=== PATIENT | male | born 2005 | race Two or more races ===

== ENCOUNTER 2025-03-27 07:43 | Inpatient (IN) | payer MEDICAID, OTHER ==
[~2025-03-27] VITALS: Ht 175.3 cm; Wt 105.4 kg
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
[2025-03-27] MEDS ORDERED: IBUP-1678 PO (08:19)
--- NOTE | 2025-03-27 08:56 | DVH ---
EXAM: US TESTICULAR ULTRASOUND HISTORY: trauma COMPARISON: None TECHNIQUE: Scrotal ultrasound was performed. FINDINGS: The right testicle measures 3.3 x 1.7 x 2.9 cm. The left testicle measures 2.6 x 2.5 x 3.2 cm. No t esticular masses or cystic lesions are identified bilaterally. There is normal color Doppler blood fl ow in the right testicle. There is absence of color doppler blood flow in the left testicle. No abn ormal color Doppler blood flow is identified in the bilateral epididymi, although the left epididymis is enlarged and heterogeneous in echotexture. No significant hydrocele bilaterally. No evidence of varicocele with the patient performing Valsalva maneuver. IMPRESSION: 1. Normal sonographic appearance of the right testicle and epididymis. 2. Absence of color doppler blood flow in the left testicle suggestive of torsion. Recommend immedia te urology consultation. 3. Enlargement of the left epididymis without hyperemia. This appearance may be due to edema also re lated to torsion. Critical Result: Absence of left testicular blood flow. Findings were communicated to LUIS DIEZ by the polysomnographic technologist immediately following the examination.
[2025-03-27] MEDS: SODIUM CHLORIDE 0.9% 1,000 ML IV ONE (09:51)
[2025-03-27] MEDS: ONDANSETRON HCL 4 MG/2 ML VIAL IV ONE (10:03)
[2025-03-27] MEDS: MORPHINE SULFATE INJ 2 MG/ml SYRG IV ONE (10:05)
[2025-03-27 10:10] LABS: Basophils # (auto) 0 10 ^3/uL (0-0.2); Basophils % (auto) 0.6 % (0.0-2.0); Eosinophils # (auto) 0.1 10 ^3/uL (0-0.8); Eosinophils % (auto) 1.6 % (0.0-7.0); Hematocrit 48.4 % (41.0-53.0); Hemoglobin 15.9 g/dL (13.5-17.5); Lymphocytes # (auto) 1.5 10 ^3/uL (0.4-5.4); Mean Corpuscular Hemoglobin 29.9 pg (28.0-32.0); Mean Corpuscular Hgb Conc. 32.8 g/dL (32.0-36.0); Mean Corpuscular Volume 91.2 fL (80.0-100.0); Monocytes # (auto) 0.5 10 ^3/uL (0-1.3); Monocytes % (auto) 7.6 % (0.0-12.0); Neutrophils # (auto) 4.8 10 ^3/uL (1.6-8.6); Neutrophils % (auto) 68.2 % (37.0-80.0); Nucleated Red Blood Cells % 0.1 %; Platelet Count (auto) 218 10^3/uL (140-450); Red Cell Distribution Width 14.3 % (11.8-14.3)
[2025-03-27 10:18] LABS: INR 1.12 (0.9-1.15); Partial Thromboplastin Time 31.3 SEC (24.5-34.5); Prothrombin Time 11.7 sec (9.3-11.8)
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
[2025-03-27] MEDS ORDERED: ONDANSETRON HCL 4 MG/2 ML VIAL IV PRN (12:00)
[2025-03-27] MEDS ORDERED: HYDROcodone-ACET 5/325MG TAB PO PRN (12:00)
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
[2025-03-27] MEDS ORDERED: HYDROmorphone HCL 2 MG/ML VL/or syr ONE (12:19)
[2025-03-27] MEDS ORDERED: MIDAZOLAM HCL 2MG/2ML 2ml VIAL (1mg/ml) ONE (12:20)
[2025-03-27] MEDS ORDERED: fentaNYL CITRATE 100 MCG/2 ML VL ONE (12:20)
[2025-03-27] MEDS ORDERED: DexAMETHasone SOD PHOS 10MG/1ML VIAL INJ ONE (12:53)
[2025-03-27] MEDS ORDERED: PROPOFOL 10 MG/ML 20 ML IV ONE (12:58)
[2025-03-27] MEDS ORDERED: ONDANSETRON HCL 4 MG/2 ML VIAL ONE (13:10)
[2025-03-27] MEDS: BUPIVACAINE 0.25% INJ 50ML VIAL ONE (13:15)
[2025-03-27 13:45] VITALS: PULSE 79; RESP 18; O2SAT 98
[2025-03-27 13:55] VITALS: PULSE 81; RESP 13; O2SAT 98
[2025-03-27] MEDS ORDERED: OXYCODONE W/ ACETAMINOPHEN 5/325MG TABLET PO PRN (14:00)
--- NOTE | 2025-03-27 14:00 | DVHOP2 ---
Operative Report - 2 Report Details Date: 03/27/25 Preop Diagnosis: left torsion Postop Diagnosis: same Surgeon: Louis Valdez Anesthesiologist: James Anesthesia: General (Dr Ramirez) Drains: no Implant: no Consent: The patient was informed of the risks and benefits of the procedure. These in clude but are not limited to complications of anesthesia, postoperative infection, incomplete relief of symptoms, recurrence of symptoms, damage to blood vessels, nerves and tendons, deep venous thrombosis, pulmonary embolism and possible need for repeat surgery in the future. Complications: no Estimated Blood Loss: 5 ml Fluids: per anesthesia Findings: torsion complete left side Indications for Surgery: as above Name of Procedure Performed scrotal exploration, detorsion left testes, with right orchiopexy Procedure Details Procedure Details: midline skin incision after injecting 8 ml marcaine.25%; left torsion noted ,untwisted 3x, small incision tunica albuginia to see any blood flow which returned quickly; right testes exposed and #4 2-O silk sutures 3,6,9 and 12 oclock postion to prevent future torsion; same done left side; closure two layers running 2-O chromic; fluffs and scrotal support Specimen: no Condition Good Disposition Acute Care Facility LOUIS VALDEZ MD March 27, 2025 14:00
[2025-03-27] MEDS ORDERED: METOCLOPRAMIDE HCL 5MG/ml INJ 2ml VIAL IV ONE (14:15)
[2025-03-27] MEDS ORDERED: ONDANSETRON HCL 4 MG/2 ML VIAL IV ONE (14:15)
[2025-03-27] MEDS ORDERED: hydrALAZINE HCL 20 MG/ML VL IV PRN (14:15)
[2025-03-27] MEDS ORDERED: KETOROLAC TROMETH 30 MG/ML 1ML VIAL IV ONE (14:15)
[2025-03-27] MEDS ORDERED: HYDROmorphone HCL 2 MG/ML VL/or syr IV PRN (14:15)
[2025-03-27] MEDS ORDERED: MIDAZOLAM HCL 2MG/2ML 2ml VIAL (1mg/ml) IV PRN (14:15)
[2025-03-27] MEDS ORDERED: ePHEDrine SULFATE 50 MG/ML AMP IV PRN (14:15)
[2025-03-27] MEDS ORDERED: MORPHINE SULFATE 4 MG/ML SYR/VIAL IV PRN (14:15)
[2025-03-27 15:16] VITALS: BP 109/82; PULSE 91; RESP 18; TEMP 97.7; O2SAT 97
[2025-03-27 17:00] VITALS: BP 116/74; PULSE 79; RESP 18; TEMP 97.6; O2SAT 99
[2025-03-27 20:00] VITALS: PULSE 72; RESP 16; O2SAT 98
[2025-03-27] MEDS: LACTATED RINGER'S 1,000 ML IV SCH (20:25)
[2025-03-27 21:00] VITALS: BP_SYST 109; BP_SYST 112; BP_DIAS 58; BP_DIAS 60; PULSE 60; PULSE 72; RESP 16; RESP 18; TEMP 97.8; TEMP 98.1; O2SAT 98
[2025-03-28] VITALS (7 sets, daily range): BP systolic 111–132; BP diastolic 49–82; PULSE 50–80; RESP 16–18; TEMP 97.6–98.3; O2SAT 98–100
[2025-03-28 08:21] LABS: Anion Gap 10 (5-15); Carbon Dioxide 26 mmol/L (20-31); Chloride 106 mmol/L (98-107); Potassium 4.2 mmol/L (3.5-5.1); Sodium 142 mmol/L (136-145)
[2025-03-28 08:22] LABS: Calcium 10.3 mg/dL (8.7-10.4)
[2025-03-28 08:27] LABS: BUN/Creatinine Ratio 9.2 (10.0-20.0); Basophils # (auto) 0 10 ^3/uL (0-0.2); Basophils % (auto) 0.2 % (0.0-2.0); Blood Urea Nitrogen 11 mg/dL (9-23); Eosinophils # (auto) 0 10 ^3/uL (0-0.8); Glucose 103 mg/dL (74-106); Hematocrit 47.2 % (41.0-53.0); Hemoglobin 15.7 g/dL (13.5-17.5); Lymphocytes # (auto) 0.7 10 ^3/uL (0.4-5.4); Lymphocytes % (auto) 7.2 % (10.0-50.0); Mean Corpuscular Hemoglobin 30.3 pg (28.0-32.0); Mean Corpuscular Hgb Conc. 33.2 g/dL (32.0-36.0); Mean Corpuscular Volume 91.2 fL (80.0-100.0); Monocytes # (auto) 0.7 10 ^3/uL (0-1.3); Monocytes % (auto) 6.5 % (0.0-12.0); Neutrophils # (auto) 8.6 10 ^3/uL (1.6-8.6); Neutrophils % (auto) 86.1 % (37.0-80.0); Nucleated Red Blood Cells % 0.1 %; Platelet Count (auto) 186 10^3/uL (140-450); Red Blood Cells 5.17 10^6/uL (4.5-5.90); Red Cell Distribution Width 14.1 % (11.8-14.3)
[2025-03-28] MEDS: MORPHINE SULFATE INJ 2 MG/ml SYRG IV PRN (09:36)
--- NOTE | 2025-03-28 11:58 | DVHPN2 ---
Progress Note - Dictate Date Seen: March 28, 2025 Has the PT tested + for MRSA If YES, has PT been informed?: No Medical Necessity Reason Pt with a Central, PICC or Fol: No Subjective feels good minimal discomfort,wants to go home vital signs Vital Sign Date Time Temp Pulse Resp B/P (MAP) Pulse Ox O2 Delivery O2 Flow Rate FiO2 03/28/25 10:06 52 18 137/64 03/28/25 09:00 98.1 99 98.1 03/28/25 08:00 Room Air* 0 21 Total Intake and Output 03/27/25 03/27/25 03/28/25 15:00 23:00 07:00 Intake Total 1000 ml 200 ml 300 ml Balance 1000 ml 200 ml 300 ml medications Current Medications Medications Dose Ordered Sig/Hong Route Start Time Stop Time Status Last Admin Dose Admin Acetaminophen/ Hydrocodone Bitart 1 tab Q4HP PRN PO 03/27/25 12:00 Hold Ondansetron HCl 4 mg Q4HP PRN IV 03/27/25 12:00 Acetaminophen 650 mg Q6HP PRN PO 03/27/25 12:00 Morphine Sulfate 2 mg Q4HPRN PRN IV 03/27/25 12:00 03/28/25 09:36 2 MG Lactated Ringer's 1,000 ml @ 150 mls/hr Q6H40M IV 03/27/25 13:45 03/28/25 09:34 150 MLS/HR Oxycodone/ Acetaminophen 1 tab Q6HP PRN PO 03/27/25 14:00 laboratory and microbiology Laboratory Tests 03/28/25 07:39 Test 03/28/25 07:39 Range/Units Serum Glucose 103 74-106 mg/dL Problem List 24 hours s/p torsion surgery Assessment/Plan improved . ok to d/c home no physical activity until seen by me at [phone] Prognosis good Plan discussed with: Patient, Other (father) LOUIS TORRES MD March 28, 2025 11:58
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
[2025-03-29] MEDS: LACTATED RINGER'S 1,000 ML IV SCH (00:14)
[2025-03-29 01:00] VITALS: BP 118/70; PULSE 55; RESP 18; O2SAT 100
[2025-03-29 05:00] VITALS: BP 104/84; PULSE 71; RESP 16; TEMP 98.4; O2SAT 100
[2025-03-29 07:55] VITALS: PULSE 53; RESP 20; O2SAT 99
[2025-03-29] MEDS: ACETAMINOPHEN 325 MG TAB PO PRN (07:55)
[2025-03-29 09:00] VITALS: BP 133/89; PULSE 53; RESP 20; TEMP 97.8; O2SAT 99
[2025-03-29] MEDS ORDERED: ACET-1882 PO (11:56)
--- NOTE | 2025-03-29 11:57 | DVHDSRES ---
Discharge Summary Date of Admission Resident Creating Document: ROSAS CERVANTES RESIDENT March 27, 2025 at 11:54 Date of Discharge: March 29, 2025 Admitting Diagnosis Lower abdominal pain secondary to trauma Labs/Diagnostic Data: Laboratory Results Test 03/28/25 07:39 03/27/25 09:57 White Blood Count 10.0 10^3/uL (4.4-10.8) Red Blood Count 5.17 10^6/uL (4.5-5.90) Hemoglobin 15.7 g/dL (13.5-17.5) Hematocrit 47.2 % (41.0-53.0) Mean Corpuscular Volume 91.2 fL (80.0-100.0) Mean Corpuscular Hemoglobin 30.3 pg (28.0-32.0) Mean Corpuscular Hemoglobin Concent 33.2 g/dL (32.0-36.0) Red Cell Distribution Width 14.1 % (11.8-14.3) Platelet Count 186 10^3/uL (140-450) Mean Platelet Volume 10.6 fL (6.9-10.8) Neutrophils (%) (Auto) 86.1 % (37.0-80.0) Lymphocytes (%) (Auto) 7.2 % (10.0-50.0) Monocytes (%) (Auto) 6.5 % (0.0-12.0) Eosinophils (%) (Auto) 0.0 % (0.0-7.0) Basophils (%) (Auto) 0.2 % (0.0-2.0) Neutrophils # (Auto) 8.6 10 ^3/uL (1.6-8.6) Lymphocytes # (Auto) 0.7 10 ^3/uL (0.4-5.4) Monocytes # (Auto) 0.7 10 ^3/uL (0-1.3) Eosinophils # (Auto) 0 10 ^3/uL (0-0.8) Basophils # (Auto) 0 10 ^3/uL (0-0.2) Nucleated Red Blood Cells 0.1 % Sodium Level 142 mmol/L (136-145) Potassium Level 4.2 mmol/L (3.5-5.1) Chloride Level 106 mmol/L (98-107) Carbon Dioxide Level 26 mmol/L (20-31) Anion Gap 10 (5-15) Blood Urea Nitrogen 11 mg/dL (9-23) Creatinine 1.20 mg/dL (0.700-1.30) Glomerular Filtration Rate Calc 89 mL/min (>90) BUN/Creatinine Ratio 9.2 (10.0-20.0) Serum Glucose 103 mg/dL (74-106) Calcium Level 10.3 mg/dL (8.7-10.4) Prothrombin Time 11.7 sec (9.3-11.8) Prothrombin Time INR 1.12 (0.9-1.15) Activated Partial Thromboplast Time 31.3 SEC (24.5-34.5) Other Laboratory Tests 03/28/25 07:39 Brief Hx & Hospital Course: History of Present Illness This 20-year-old male with no past medical history presents in the ED with a chief complaint of left testicular pain. The patient reports accidentally punch in the testicle yesterday via one of the family member. Since then pain and swelling started for which prompted the patient to visit the emergency department. In the emergency department, the patient is found to have left testicular torsion for which Urology consult stat was initiated. Past Medical Histor: Denies Past Surgical History: Denies Family History: Reviewed, non-contributory to the management of this case. Drugs: Marijuana Brief Hospital course Patient is a 20-year-old male with no known past medical history presented to the ED yesterday with lower abdominal pain after trauma to his abdomen. Per patient, he was playing with his cousin who accidentally hit him in his groin. Immediately, he started feeling severe pain in lower abdominal and scrotal concepcion thus prompting the ED visit. When patient presented to the ED, testicular ultrasound done revealed evidence of testicular torsion left testicles. Urology was consult and patient was taking straight into surgery. Surgery was successful. He had scrotal exploration, detorsion left testes, with right orchiopexy. On examination post surgery, his pain in manageable. He has Tylenol on board prn. No redness or discharges noted at the incision. Very small amount of blood noted on the gauze. Overall, patient is doing well. Will discharge him home today. Patient is to follow up at the discharge clinic in 7 days and follow up with the Urologist in 2 weeks. Review of System Constitutional: Denies fever no chills no feeling of malaise HEENT: Denies headache, ear pain, ear discharges, conjunctivitis, nasal discharge throat pain Cardiovascular: Denies chest pain, palpitation, orthopnea, PND, or pedal edema Respiratory: Denies shortness of breath, cough cough, sputum production, hemoptysis, GI: Denies abdominal pain, nausea, vomiting, diarrhea, hematemesis, hematochezia, : Denies frequency, urgency, hematuria, Endocrine: Denies unintentional weight gain or weight loss, feeling of hot flashes, Zenon: Denies easy bruising, bleeding disorders, epistaxis Musculoskeletal: Denies joint pains, muscle aches Psych: No evidence of depression, kylee, suicidal ideation Examination General Appearance: Alert, Oriented X3, Cooperative, No acute distress HEENT: Atraumatic, PERRLA, EOMI, Mucous membrane moist/pink Respiratory: Clear to auscultation, Normal air movement Cardiovascular: Regular rate, Normal S1, Normal S2, No murmurs, no chest wall tenderness Abdominal: NO distention, no tenderness, bowel sounds present, no scars noted Extremities: No clubbing, No cyanosis, No edema, Normal pulses, No tenderness/swelling Skin: No rashes, No breakdown, No significant lesion Neuro: Normal gait, Normal speech, Strength at 5/5 X4 ext, Normal tone, Sensation intact, Cranial nerves 3-12 NL, Reflexes 2+ Psych/Mental Status: Mental status NL, Mood NL scrotum: mild incision noted. no redness appreciated Diagnoses Left Testicular torsion Obesity grade 1 Discharge plan Stable for discharge home Follow up at discharge clinic in a week Follow up with the urologist in 2 weeks Tylenol 650mg tid prn. Discharge plans discussed with Dr. Interiano Consults/Reason for consult Chief Complaint: left testicular pain Operations or Procedures Operative Report - 2 Report Details Date: 03/27/25 Preop Diagnosis: left torsion Postop Diagnosis: same Surgeon: Sander Valdez Anesthesiologist: James Anesthesia: General (Dr Ramirez) Drains: no Implant: no Consent: The patient was informed of the risks and benefits of the procedure. These include but are not limited to complications of anesthesia, postoperative infection, incomplete relief of symptoms, recurrence of symptoms, damage to blood vessels, nerves and tendons, deep venous thrombosis, pulmonary embolism and possible need for repeat surgery in the future. Complications: no Estimated Blood Loss: 5 ml Fluids: per anesthesia Findings: torsion complete left side Indications for Surgery: as above Name of Procedure Performed scrotal exploration, detorsion left testes, with right orchiopexy Procedure Details Procedure Details: midline skin incision after injecting 8 ml marcaine.25%; left torsion noted ,untwisted 3x, small incision tunica albuginia to see any blood flow which returned quickly; right testes exposed and #4 2-O silk sutures 3,6,9 and 12 oclock postion to prevent future torsion; same done left side; closure two layers running 2-O chromic; fluffs and scrotal support Specimen: no Condition Good Disposition 2 Acute Care Facility Condition at Discharge: Good Final Diagnosis/Problems List Left Testicular torsion Obesity grade 1, BMI: 34.1 Discharge Disposition: Home Discharge Instruct/Medications Diet: Regular Activity: No Restrictions, As Tolerated Follow Up/Referral: 7 days Medications: tylenol 650 prn Discharge Statement: "Patient was advised to return to the ER or call 911 if any headaches, dizziness, shortness of breath, chest pain, abdominal pain, bleeding, fevers, or worsening of medical condition. Patient was counseled about treatment plan, medications, possible side effects, patientverbalized understanding. All questions were answered to the best of my ability. This discharge took greater then 30 minutes in planning, reviewing documentation, counseling the patient, and discussing with other team members." ASSESSMENT ASSESSMENT Assessment Left Testicular torsion Obesity grade 1, BMI: 34.1 Date of Service: March 29, 2025 Billing Provider: KAREN BERKOWITZ MD Common Visit Codes: 15351-DOU/OBS DISCH DAY >30min ROSAS CERVANTES RESIDENT March 29, 2025 11:57 KAREN BERKOWITZ MD April 04, 2025 00:25
[2025-03-29 13:00] VITALS: BP 141/87; PULSE 56; RESP 20; TEMP 98; O2SAT 100
[2025-03-29 13:30] VITALS: BP 109/63; PULSE 48; RESP 18; TEMP 97.8; O2SAT 100
== END 2025-03-29 14:10 | disposition home or self-care (01) | DRG 483 ==
LOC: ER 07:48 → OVERFLOW 11:54 → WEST WING 14:28
PROVIDERS: ADMIT Student in an Organized Health Care Education/Training Program; ATTEND Emergency Medicine
PROC: 0VQ90ZZ Repair Right Testis, Open Approach (ICD-10-PCS; 2025-03-27)
PROC: 0VSB0ZZ Reposition Left Testis, Open Approach (ICD-10-PCS; principal; 2025-03-27 12:46)
DX: N44.00 Torsion of testis, unspecified (principal); E66.9 Obesity, unspecified; Z79.1 Long term (current) use of non-steroidal anti-inflammatories (NSAID); F12.90 Cannabis use, unspecified, uncomplicated; Z79.899 Other long term (current) drug therapy; Z68.34 Body mass index [BMI] 34.0-34.9, adult
CPT/HCPCS: 36415; 76870; 80048; 85025; 85610; 85730; 96361; 96374; 96375; 99291; G0378; J1100; J2250; J2405; J2704; J3490